=== PATIENT | female | born 1965 | race African-American/Black ===

== ENCOUNTER 2017-01-05 08:26 | Outpatient (CLI) | payer OTHER | END 2017-01-05 18:54 | disposition home or self-care (01) | LOC: MAMMO 08:26 | DX: Z12.31 Encounter for screening mammogram for malignant neoplasm of breast (principal) ==

== ENCOUNTER 2018-09-20 14:49 | Outpatient (CLI) | payer OTHER | END 2018-09-20 19:48 | disposition home or self-care (01) | LOC: MAMMO 14:49 | DX: Z12.31 Encounter for screening mammogram for malignant neoplasm of breast (principal) ==

== ENCOUNTER 2018-10-14 08:31 | Outpatient (CLI) | payer OTHER | END 2018-10-14 21:38 | disposition home or self-care (01) | LOC: MAMMO 08:31 | DX: Z12.31 Encounter for screening mammogram for malignant neoplasm of breast (principal); R92.8 Other abnormal and inconclusive findings on diagnostic imaging of breast ==